=== PATIENT | male | born 1975 | race Hispanic/Latino ===

== ENCOUNTER 2017-01-25 07:27 | Day surgery (SDC) | payer OTHER ==
[2017-01-21 11:09] VITALS: BMI 45.3
[2017-01-25] MEDS ORDERED: Morphine 1 mg/ml preservative-free Inj(Duramorph) ONE (07:51)
[2017-01-25] MEDS ORDERED: Sodium Chloride 0.9% 0 ML IV ONE (07:51)
[2017-01-25] MEDS ORDERED: Bupivacaine 0.5% Inj(30mL) ONE (07:52)
[2017-01-25] MEDS ORDERED: Thrombin Topical 5,000 IU Spray Kit ONE (07:52)
[2017-01-25] MEDS ORDERED: Absorbable Gelatin Sponge Size 100 ONE (07:52)
[2017-01-25] MEDS ORDERED: Lidocaine 2% w Epi 1:100,000 Inj IJ ONE (07:52)
[2017-01-25] MEDS ORDERED: EPINEPHrine 1 mg/ml (1:1000) Inj ONE (07:52)
[2017-01-25] MEDS ORDERED: Lactated Ringer's 1,000 ML IV ONE ×2 (08:19→11:00)
[2017-01-25] MEDS ORDERED: Rocuronium 10 mg/ml (5 ml) ONE ×2 (08:37→09:40)
[2017-01-25] MEDS ORDERED: Succinylcholine 200 mg/10 ml Inj IV ONE (08:37)
[2017-01-25] MEDS ORDERED: Midazolam 2 MG/2 ML VIAL ONE (08:37)
[2017-01-25] MEDS ORDERED: Propofol 10 mg/ml Inj (20 ML) ONE ×2 (08:37→10:34)
[2017-01-25] MEDS ORDERED: MethylPREDNISolone Depo 40 mg/ml Inj ONE (10:49)
[2017-01-25] MEDS ORDERED: methylPREDNISolone Depo 80 mg/ml Inj ONE (10:49)
[2017-01-25] MEDS ORDERED: Bupivacaine HCl 0.25% PF (30 ml) Inj ONE (10:49)
[2017-01-25] MEDS ORDERED: Neostigmine Methylsulfate 3mg/3ml Syringe IV ONE (10:52)
[2017-01-25] MEDS ORDERED: Dexamethasone 4 mg/1 ml IVP ONE (12:14)
--- NOTE | 2017-01-25 12:17 | PCM.SURG1 ---
Surgeon's Initial Post Op Note - Surgeon's Notes Surgeon: Ben Olmos MD Making Machine Operator: Madie Glynn PA-C Type of Anesthesia: General Endo Pre-Operative Diagnosis: Right Hip Labral Tear Operative Findings: See op report Post-Operative Diagnosis: Same as pre-op dx Operation Performed: Right hip Arthroscopy, Debriedement, femoroplasty, acetabuloplasty Specimen/Specimens Removed: None Estimated Blood Loss: EBL {In ML}: 15 Date of Surgery/Procedure: 01/25/17 Time of Surgery/Procedure: 09:45
[2017-01-25] MEDS ORDERED: Oxycodone/Acetaminophen 5/325 mg Tab PO PRN (12:18)
[2017-01-25] MEDS: HYDROmorphone 0.5 mg/0.5 ml ISec IVP PRN ×5 (12:25→13:25)
[2017-01-25] MEDS ORDERED: Dexamethasone 4 mg/1 ml IV ONE (13:40)
[2017-01-25 14:36] VITALS: RESP 20; O2SAT 97
[2017-01-25 15:44] VITALS: BP 141/90; PULSE 102; TEMP 97.3
--- NOTE | 2017-01-26 16:55 | RAD ---
PROCEDURE: Fluoroscopy up to 1 hr. HISTORY: RIGHT HIP ARTHROSCOPY COMPARISON: None TECHNIQUE: Standard protocol for this study/examination. FINDINGS: Submitted images from the current procedure: 8.0. IMPRESSION: Total fluoroscopic time (continuous mode) utilized during the procedure: 85.5 seconds.
== END 2017-01-25 15:45 | disposition home or self-care (01) ==
LOC: H.OPSURG 07:27
PROVIDERS: ATTEND Orthopaedic Surgery
DX: M24.151 Other articular cartilage disorders, right hip (principal); M25.851 Other specified joint disorders, right hip; M16.11 Unilateral primary osteoarthritis, right hip

== ENCOUNTER 2017-06-07 07:48 | Day surgery (SDC) | payer OTHER ==
[2017-06-07 08:15] VITALS: BMI 33.5
[2017-06-07] MEDS ORDERED: Lactated Ringer's 1,000 ML IV ONE ×3 (09:20→19:15)
[2017-06-07] MEDS ORDERED: Bupivacaine HCl 0.25% PF (10 ml) Inj ONE (12:16)
[2017-06-07] MEDS ORDERED: MethylPREDNISolone Depo 40 mg/ml Inj ONE (12:16)
[2017-06-07] MEDS ORDERED: methylPREDNISolone Depo 80 mg/ml Inj ONE (12:16)
[2017-06-07] MEDS ORDERED: Lidocaine 2% w Epi 1:100,000 Inj IJ ONE (12:17)
[2017-06-07] MEDS ORDERED: Bupivacaine 0.5% Inj(30mL) ONE (12:17)
[2017-06-07] MEDS ORDERED: Lidocaine 2% Jelly (5 ml) TOP ONE (12:59)
[2017-06-07] MEDS ORDERED: Propofol 10 mg/ml Inj (20 ML) ONE ×3 (12:59→16:53)
[2017-06-07] MEDS ORDERED: Midazolam 2 MG/2 ML VIAL ONE (12:59)
[2017-06-07] MEDS ORDERED: Dexamethasone 4 mg/1 ml ONE (15:08)
[2017-06-07] MEDS: HYDROmorphone 0.5 mg/0.5 ml ISec IVP PRN ×6 (17:10→18:30)
[2017-06-07] MEDS ORDERED: Lactated Ringer's 1,000 ML IV SCH (17:15)
--- NOTE | 2017-06-07 17:16 | PCM.SURG1 ---
Surgeon's Initial Post Op Note - Surgeon's Notes Surgeon: Ben Olmos MD Rotary Pump Operator: Madie Glynn PA-C Type of Anesthesia: General Endo Pre-Operative Diagnosis: Left Hip labral tear Operative Findings: see op report Post-Operative Diagnosis: same as pre-op dx Operation Performed: Left hip arthroscopy, labral repair, femoroplasty, debriedment Specimen/Specimens Removed: none Estimated Blood Loss: EBL {In ML}: 5 Date of Surgery/Procedure: 06/07/17 Time of Surgery/Procedure: 14:00
[2017-06-07] MEDS ORDERED: Oxycodone/Acetaminophen 5/325 mg Tab PO PRN (17:18)
[2017-06-07] MEDS ORDERED: Ropivacaine 0.5% 30ML IV ONE ×2 (17:40→18:42)
[2017-06-07] MEDS ORDERED: Lidocaine 2% Inj (20ml) ONE (17:40)
[2017-06-07] MEDS ORDERED: Sodium Chloride 0.9% 500 ML IV ONE (18:15)
[2017-06-07] MEDS ORDERED: Lidocaine 1% Inj (20ml) ONE (18:42)
--- NOTE | 2017-06-07 19:23 | PCM.ANESB3 ---
Femoral Nerve Block - Femoral Nerve Block Date of Procedure: 06/07/17 Anesthesiologist: Valente Pre-Procedure Diagnosis: Left hip torn labrum Post-Procedure Diagnosis: Same Procedure Performed: Femoral Nerve Block Left - Procedure Femoral Nerve Block: The procedure was explained to the patient that it is for the post-operative pain management. Consent was obtained after a thorough discussion with the patient regarding the benefits and possible complications of local anesthetic block of the femoral nerve at the inguinal crease area. In the PACU. Time-out was held with the circulating nurse to confirm the correct surgery and the appropriate block. After applying oxygen by nasal cannula , patient was placed in supine position with fully extended lower extremities and the ____left____ groin exposed. The femoral artery was then carefully palpated. The ultrasound transducer was then applied to this area in the transverse plane and the femoral nerve was visualized lateral to the femoral artery and underneath the fascia iliaca. After thorough identification, the inguinal crease area was prepped with Chloraprep and 1 % Lidocaine was injected subcutaneously for topical anesthesia. At this point, a #22 gauge Stimuplex 2-inch needle was inserted immediately lateral to the femoral artery pulse at the inguinal crease and advanced perpendicularly. The needle was inserted to the ultrasound transducer in-plane towards the femoral nerve in a [id number] direction. Needle advancement was performed carefully under direct ultrasound visualization. Nerve stimulator was used and twitch of the quadriceps muscle was obtained at current of __0.4___ MA. After negative aspiration, __2___cc of __0.25___% __ropivicaine was injected and this was followed with _38 cc of ___0.25____ % ropivicaine . Under ultrasound guidance the local anesthetics were observed spreading below fascia iliaca and around the femoral nerve. The needle was removed intact and sterile dressing was applied. The patient had stable vital signs, was conscious and in no apparent distress. The patient tolerated the femoral nerve block well.
--- NOTE | 2017-06-07 19:29 | PCM.ANESB3 ---
Femoral Nerve Block - Femoral Nerve Block Date of Procedure: 06/07/17 Anesthesiologist: Valente Pre-Procedure Diagnosis: Left Hip torn labrum Post-Procedure Diagnosis: Same Procedure Performed: Femoral Nerve Block Left - Procedure Femoral Nerve Block: After the initial femoral nerve block the patient continued to complain of pain in the distribution of the femoral nerve. After verifying the patients consent for a second femoral nerve block and reviewing the risks and benefits and possible complications of the procedures, standard monitors were applied. Time- out was held with the circulating nurse to confirm the correct surgery and the appropriate block. After applying oxygen by nasal cannula the patient was placed in supine position with fully extended lower extremities and the ____left ____ groin exposed. The femoral artery was then carefully palpated. The ultrasound transducer was then applied to this area in the transverse plane and the femoral nerve was visualized lateral to the femoral artery and underneath the fascia iliaca. After thorough identification, the inguinal crease area was prepped with Chloraprep and 1 % Lidocaine was injected subcutaneously for topical anesthesia. At this point, a #22 gauge Stimuplex 2-inch needle was inserted immediately lateral to the femoral artery pulse at the inguinal crease and advanced perpendicularly. The needle was inserted to the ultrasound transducer in-plane towards the femoral nerve in a [id number] direction. Needle advancement was performed carefully under direct ultrasound visualization. Nerve stimulator was used and twitch of the quadriceps muscle was obtained at current of __0.4___ MA. After negative aspiration, __2___cc of ___0.25__% ropivicaine was injected and this was followed with ___38___ cc of __0.25 % _ropivicaine . Under ultrasound guidance the local anesthetics were observed spreading below fascia iliaca and around the femoral nerve. The needle was removed intact and sterile dressing was applied. The patient had stable vital signs, was conscious and in no apparent distress. The patient reported a significant reduction in his pain after the second femoral nerve block.
[2017-06-07 19:59] VITALS: O2SAT 95
[2017-06-07 20:11] VITALS: BP 141/83; PULSE 102; RESP 20; TEMP 98.4
--- NOTE | 2017-06-07 22:15 | OP ---
PROCEDURE DATE: 06/07/2017 PREOPERATIVE DIAGNOSES: 1. Left hip synovitis. 2. Left hip labral tear. 3. CAM impingement. POSTOPERATIVE DIAGNOSES: 1. Left hip extensive synovitis. 2. Grade 2 chondral injury of femoral head. 3. Displaced labral tear. 4. CAM lesion. SURGEON: Ben Olmos MD. SODDER: Madie Glynn PA-C ANESTHESIA: General and postoperative block. PROCEDURES: 1. Left hip arthroscopic labral repair. 2. Complete synovectomy. 3. Chondroplasty of femoral head. 4. Femoral neck osteoplasty. ESTIMATED BLOOD LOSS: 10 mL. SPECIMENS: None. CLOSURE: Primary FLUIDS: See anesthesia sheet COMPLICATIONS: None INDICATIONS: After failing a course of non-operative therapy, the patient elected to undergo the above procedure. In the office, the risks and possible complications of hip arthroscopy were discussed in detail with the patient. These risks include but are not limited to continued pain, lack of motion, infection, vascular injury, DVT / PE, nerve injury including sciatic nerve injury, peroneal nerve dysfunction, perineal nerve injury including temporary and permanent paresthesias, reflex sympathetic dystrophy, compartment syndrome, unforeseen medical and/or anesthesia complications, limb loss, and even . The patient expressed an understanding of the risks and possible benefits of the procedure, and is also aware of the alternatives to surgery. An informed consent was obtained, and was checked immediately pre-op. PROCEDURE: The patient was correctly identified in the holding area and the left hip was marked with the surgeons initials. The patient was transported to the operating room and placed in the supine position. General and postoperative nerve block anesthesia was obtained. Both legs were placed in a distractor, a well padded perineal post was placed. The operative extremity was distracted, against the well-padded perineal post, using leg orozco with manual distractor. Live fluoroscopic images were used to confirm adequate distraction, once satisfied, the extremity was draped and prepped in standard fashion. Time out was completed confirming the correct operative site. A standard anterolateral viewing portals was established after placing a spinal needle into the hip joint, and it's position was confirmed with fluoroscopic image. Next, #11 blade was used to make small skin incision and cannula was inserted into the hip joint. The hip joint was distended with normal saline and epinephrine in a 1:1,000,000 mixture, at an initial pressure of 35mmHg. The 70 degree arthroscope was inserted from the anterolateral portal. A second, long spinal needle was inserted into the joint, under direct visualization to establish modified anterior portal. Care was taken to not injure the labrum and chondral surfaces and additional cannula was inserted. Next, a sharp blade was used to perform limited capsulotomy and we proceeded with diagnostic arthroscopy. FINDINGS: Arthroscopic examination of the hip revealed: 1. Extensive synovitis. 2. Displaced labral tear. 3. Grade 2 chondral injury of femoral head. 4. CAM lesions. Excessive intra-articular synovitis was cleared with a 4.0 mm full radius shaver. The hypertrophic, erythematous synovium was resected, hemostasis was maintained with the radiofrequency device. After careful inspection, the labrum was found to be fully torn and displaced from the acetabular edge. Decision was made to proceed with labral repair. Using motorized shave, all the soft tissue was removed from the edge of the acetabulum. A high speed lacey was used to decorticate the bone, to promote bleeding and improve healing of repaired tissue. A total of 2 [place] curved suture anchors were placed at the edge of acetabulum. Care was taken not the penetrate the chondral surface of acetabulum. The suture was passed around the labrum using suture passing device and labrum was securely repaired to it's anatomic position. The full radius shaver was used to mechanically debride loose chondral edges of the femoral head, to a stable border. Extreme care was taken to not disrupt the adjacent chondral surface. The edge of the debrided area was probed to ensure chondral stability. Patient was noted to have significant CAM impingement, that was noted on pre-surgical imaging studies and confirmed with intra-operative fluoroscopy and arthroscopic assessment. The leg distraction was released, hip was flexed, taken through range of motion the truly assess the borders and extent of CAM lesion. Motorized shaver was used to remove any soft tissue. Next, high-speed lacey was used to remove the CAM lesion. The extent of resection was confirmed using live fluoroscopy and found to be adequate. Portals were closed using sutures. A sterile dressing was applied. The patient was extubated without incident and transferred to the recovery room in stable condition, having tolerated the procedure well. Post-operatively, the patient was instructed to remain toe touch weightbearing and limited range of motion until further instructed. Follow up in the office 7 to 10 days. The sponge and needle count at the close of the case was correct. The attending surgeon was scrubbed and present for all the critical portions of the case, including all of the intra-articular arthroscopic procedures. During this procedure, I was assisted by Madie Glynn PA-C, who assisted in positioning the patient on the operating room table as well as transferring the patient from the operating room table to the recovery room stretcher. In addition, Madie Glynn PA-C assisted me during the actual operative procedure by positioning the patient's extremity to allow for easier arthroscopic access to all areas of the joint. The presence of Madie Glynn PA-C as my operative commercial escrow assistant was medically necessary to ensure the utmost safety of the patient in the pre, intra-, and post-operative periods. Ben Olmos MD
--- NOTE | 2017-06-09 17:23 | RAD ---
PROCEDURE: Intraoperative Fluoroscopy. HISTORY: FLUOROSCOPY FINDINGS: Fluoroscopic assistance was provided for left hip orthopedic procedure. Please refer to the operative report from
== END 2017-06-07 21:05 | disposition home or self-care (01) ==
LOC: H.OPSURG 07:48 → H.PEDS 20:03 → H.OPSURG 21:05
PROVIDERS: ATTEND Orthopaedic Surgery
DX: M65.88 Other synovitis and tenosynovitis, other site (principal); S79.812A Other specified injuries of left hip, initial encounter; X58.XXXA Exposure to other specified factors, initial encounter; S73.192A Other sprain of left hip, initial encounter; E66.9 Obesity, unspecified
CPT/HCPCS: 27299; 29863; 97161; G8978; G8979; G8980; J0171; J0690; J1030; J1040; J1100; J1170; J2001; J2250; J2405; J2704; J2765; J3010; J7030; J7040; J7120

== ENCOUNTER 2017-10-18 09:03 | Inpatient (IN) | payer OTHER ==
[2017-10-17 14:34] VITALS: BMI 34.8
[2017-10-18] MEDS ORDERED: Propofol 10 mg/ml Inj (20 ML) ONE (12:38)
[2017-10-18] MEDS ORDERED: Midazolam 2 MG/2 ML VIAL ONE (12:38)
[2017-10-18] MEDS ORDERED: Lidocaine 4% (Laryng-O-Jet) Kit MM ONE (12:38)
[2017-10-18] MEDS ORDERED: Rocuronium 10 mg/ml (5 ml) ONE ×2 (12:45→14:36)
[2017-10-18] MEDS ORDERED: Sodium Chloride 0.9% 20 ML IV ONE (13:06)
[2017-10-18] MEDS ORDERED: MethylPREDNISolone Depo 40 mg/ml Inj ONE (13:06)
[2017-10-18] MEDS ORDERED: Bupivacaine 0.5% Inj(30mL) ONE (13:07)
[2017-10-18] MEDS ORDERED: Lidocaine 1% Inj (20ml) ONE (13:07)
[2017-10-18] MEDS ORDERED: Sodium Chloride 0.9% 10 ML IV ONE (14:12)
[2017-10-18] MEDS ORDERED: Sevoflurane - Inhalation Anesthetic Liq (250 ml) ONE (15:14)
[2017-10-18] MEDS: Bupivacaine 0.5% Inj(30mL) ONE ×2 (15:14→15:57)
[2017-10-18] MEDS: Morphine 1 mg/ml preservative-free Inj(Duramorph) ONE ×2 (15:15→15:57)
[2017-10-18] MEDS ORDERED: Sodium Chloride 0.9% Inj (10mL) IV ONE ×3 (15:18→15:57)
[2017-10-18] MEDS ORDERED: EPINEPHrine 1 mg/ml (1:1000) Inj IV ONE ×3 (15:20→15:57)
[2017-10-18] MEDS ORDERED: Neostigmine 1:1000 (1 mg/ml) Inj ONE (15:50)
[2017-10-18] MEDS ORDERED: Lactated Ringer's 1,000 ML IV ONE ×3 (15:58→16:35)
--- NOTE | 2017-10-18 16:45 | PCM.SURG1 ---
Surgeon's Initial Post Op Note - Surgeon's Notes Surgeon: Ben Olmos MD Feeder Worker Power Unit Operator: Madie Glynn PA-C; Yue Forde Type of Anesthesia: General Endo, Spinal Pre-Operative Diagnosis: Right hip severe OA Operative Findings: see op report Post-Operative Diagnosis: same as pre-op dx Operation Performed: R THR Specimen/Specimens Removed: right hip femoral head and soft tissue Estimated Blood Loss: EBL {In ML}: 100 Date of Surgery/Procedure: 10/18/17 Time of Surgery/Procedure: 14:30
[2017-10-18] MEDS ORDERED: Oxycodone/Acetaminophen 5/325 mg Tab PO PRN (16:51)
--- NOTE | 2017-10-18 18:54 | RAD ---
PROCEDURE: Right Hip Radiographs. HISTORY: s/p RTHR COMPARISON: None. FINDINGS: BONES: No acute fracture. JOINTS: Right hip arthroplasty. No dislocation. SOFT TISSUES: Normal. OTHER FINDINGS: None. IMPRESSION: Right hip arthroplasty.
[2017-10-18] MEDS: oxyCODONE 10 mg ER Tab (oxyCONTIN) PO SCH (21:27)
[2017-10-18] MEDS ORDERED: ceFAZolin 1 GM in Sodium Chloride 0.9% 100 ML IVPB ONE (21:30)
--- NOTE | 2017-10-18 23:10 | OP ---
PROCEDURE DATE: 10/18/2017 ATTENDING SURGEON: Ben Olmos MD MANAGER FRENCH: Madie Glynn PA-C PREOPERATIVE DIAGNOSIS: Right hip osteoarthritis. POSTOPERATIVE DIAGNOSIS: Right hip osteoarthritis. PROCEDURE: Right total hip replacement. IMPLANTS SIZE: Kady size-54 mm Titanium cup, a 10-degree liner, size 4 high-offset stem, 36-mm ceramic head with -5 neck length. ANESTHESIA TYPE: General. ESTIMATED BLOOD LOSS: 400 mL. COMPLICATIONS: None. HISTORY: Patient with long standing history of right hip pain refractory of conservative management. X-ray had shown significant loss of joint space. After the failure of extensive conservative management, I had offered the patient the treatment option of total hip replacement. I reviewed the risk and benefits of the surgery with the patient in detail. The risks include, but not limited to bleeding, infection, nerve vessel damage, continuous pain, blood loss, instability, dislocation, iatrogenic fracture, blood clots, need for further surgery, and even . The patient fully understood the risks and benefits and opted to proceed. Patient underwent necessary preoperative medical workup and once medically cleared, was scheduled for the procedure. DESCRIPTION OF PROCEDURE: On the day of the surgery, the patient was admitted to preoperative holding area. A laterality sheet was completed, confirming correct operative site. An informed consent was signed from the patient and the correct operative hip was marked. Patient was brought into the operating room table. He underwent general anesthesia. We proceeded with Navigation assisted total hip replacement. Two pins were placed in the iliac crest to attach the antenna. Additional checkpoint was placed on the greater trochanter and on top of the acetabular roof. Afterwards, the patient was placed on the operating room table in lateral decubitus position. All the bony prominences were well padded and an axillary roll was also placed. The hip was draped and prepped in the standard sterile manner. Timeout was completed, confirming correct operative site. We utilized a standard postero-lateral approach. Using a #10 blade, a skin incision was made. The soft tissue dissection was taken down until the IT band fascia was identified incised along it's fibers. The short external rotators were exposed and excised with the capsule. It was tagged wit heavy sutures preserved for a later repair. Afterwards, the hip was dislocated and proposed neck cut was made. The Acetabulum was exposed using standard retractors. The remnant of torn labrum was excised along with pulvinar. The acetabulum was reamed using motorized reamers to the size that provide adequate depth and coverage. Next, 54-mm size cup was securely fixed in to the acetabular socket in appropriate version and inclination. A polyethylene liner was secured in to the acetabular cup. The femoral canal was exposed using standard retractors. Using the box chisel, lateral femoral neck was removed. Femoral canal was broached up to size-4 broach, which provide a secure fit and adequate fill of femoral canal. A high-offset trial neck was secured onto the broach. Different trial heads with variable neck lengths were secured onto the trial neck. The hip was reduced and taken through extensive range of motion to test stability, soft tissue tensioning and leg length. It was noted the 36-mm head with -5 neck length provide adequate stability, soft tissue tensioning and length. Next, size 4 high-offset stem was securely fixed into the femoral canal. Then, a 36-mm ceramic head with -5 neck length was secured onto the neck of femoral stem. Hip was reduced and taken through final range of motion to assess for stability, soft tissue tensioning and leg length which was found to be satisfactory. During this procedure, I was assisted by Madie Glynn PA-C, who assisted in positioning the patient on the operating room table as well as transferring the patient from the operating room table to the recovery room stretcher. In addition, Madie Glynn PA-C, assisted me during the actual operative procedure by positioning, protecting critical neurovascular structures, exposure of the joint, and proper positioning of the implants. The presence of Madie Glynn PA-C, as my operative assistant manager retail was medically necessary to ensure the utmost safety of the patient in the pre, intra-, and post-operative periods. Finally, the wound was copiously irrigated using pulse lavage solution. All loose bodies were removed. The short external rotators were repaired to greater trochanter using drill holes and heavy sutures. IT band fascia was tightly closed using heavy sutures and rest the wound was closed standard manner. Sterile dressing was applied. Patient was transferred to stretcher. Post-op instructions included posterior hip precautions. Due to the patient's morbid obesity, this procedure was more difficult than a standard knee arthroscopy. This required extra time during prepping and draping, as well as an extended operative time. The length of the case was prolonged due to these factors by 50%. Ben Olmos MD
[2017-10-19] MEDS ORDERED: ceFAZolin 1 GM in Sodium Chloride 0.9% 100 ML IVPB ONE (05:30)
[2017-10-19 06:31] LABS: BASO % 0.3 % (0.0-2.0); HEMOGLOBIN 12.8 g/dL (12.0-18.0); LYMPH # 1.6 K/uL (1.0-4.3); LYMPH % 16.5 % (20.0-40.0); MEAN CELL VOLUME 88.8 fl (80.0-94.0); MEAN CORPUSCULAR HEMOGLOBIN 30.7 pg (27.0-31.0); MEAN CORPUSCULAR HGB CONC 34.6 g/dL (33.0-37.0); MEAN PLATELET VOLUME 7.7 fl (7.2-11.7); MONO % 10.2 % (0.0-10.0); NEUT # 7.3 K/uL (1.8-7.0); RBC 4.18 Mil/uL (4.40-5.90)
[2017-10-19 06:38] LABS: BLOOD UREA NITROGEN 18 mg/dl (9-20); CALCIUM 8.4 mg/dL (8.4-10.2); GFR AFRICAN-AMERICAN > 60; GFR NON-AFRICAN AMERICAN > 60
[2017-10-19] MEDS ORDERED: Povidone Iodine Topical 10% Sol ONE (09:07)
[2017-10-19] MEDS: oxyCODONE 10 mg ER Tab (oxyCONTIN) PO SCH ×2 (09:57→20:14)
--- NOTE | 2017-10-19 10:05 | CP.PCM.PN ---
Subjective - Date & Time of Evaluation Date of Evaluation: 10/19/17 Time of Evaluation: 08:45 - Subjective Subjective: S/P RTHR POD#1 Pt seen and examined with Dr. Olmos at bedside, pt comfortable in bed Pt c/o mild right hip pain and drainage Pt c/o trouble urinating, states was able to urinate small amount this am Pt denies any chest pain, SOB, N/V/D, numbness/tingling RLE Objective - Vital Signs/Intake and Output Vital Signs (last 24 hours): Temp Pulse Resp BP Pulse Ox 99.4 F 110 H 18 126/70 20 L 10/19/17 07:53 10/19/17 07:53 10/19/17 05:15 10/19/17 07:53 10/19/17 07:53 - Medications Medications: Current Medications Acetaminophen (Tylenol 325mg Tab) 325 mg PO Q4 PRN PRN Reason: pain1-3 Celecoxib (Celebrex) 200 mg PO Q12 [facility] Last Admin: 10/18/17 21:26 Dose: 200 mg Docusate Sodium (Colace) 100 mg PO BID [facility] Last Admin: 10/18/17 21:26 Dose: 100 mg Hydromorphone HCl (Dilaudid) 0.5 mg IVP Q5MIN PRN PRN Reason: Pain, moderate (4-7) Ketorolac Tromethamine (Toradol) 15 mg IM Q8 [facility] Stop: 10/20/17 23:59 Last Admin: 10/19/17 02:02 Dose: Not Given Ondansetron HCl (Zofran Inj) 4 mg IVP Q4 PRN PRN Reason: Nausea/Vomiting Last Admin: 10/18/17 21:29 Dose: 4 mg Oxycodone HCl (Oxycontin Extended Release Tab) 10 mg PO Q12 [facility] Stop: 11/01/17 21:01 Last Admin: 10/18/17 21:27 Dose: 10 mg Oxycodone/Acetaminophen (Percocet 5/325 Mg Tab) 1 tab PO Q4 PRN PRN Reason: pain4-7 Stop: 10/21/17 16:52 - Labs Labs: 10/19/17 05:20 10/19/17 05:20 - Constitutional Appears: Well, No Acute Distress - Respiratory Exam Respiratory Exam: Clear to Ausculation Bilateral, NORMAL BREATHING PATTERN - Cardiovascular Exam Cardiovascular Exam: REGULAR RHYTHM, RRR - Extremities Exam Additional comments: RLE: Hip dressing saturated, dressing changed, minimal active draiange from wound distally Calves soft and nontender b/l N/V intact distally Distal pulses wnl Cap refill <2sec Assessment and Plan - Assessment and Plan (Free Text) Assessment: 42 yo M s/p RTHR POD#1 Plan: Continue to monitor wound drainge/change dressing prn Pain Control DVT ppx- aspirin 325mg BID Incentive Spirometer PT/OT - WBAT RLE Posterior Hip precautions F/U labs Will follow
[2017-10-19] MEDS ORDERED: Enoxaparin 40 mg Syringe SC SCH (22:00)
[2017-10-20 07:26] LABS: BASO % 0.5 % (0.0-2.0); EOS # 0.1 K/uL (0.0-0.7); EOS % 0.8 % (0.0-4.0); HEMOGLOBIN 11.9 g/dL (12.0-18.0); LYMPH % 24.3 % (20.0-40.0); MEAN CELL VOLUME 88.8 fl (80.0-94.0); MEAN CORPUSCULAR HEMOGLOBIN 30.9 pg (27.0-31.0); MEAN CORPUSCULAR HGB CONC 34.8 g/dL (33.0-37.0); MEAN PLATELET VOLUME 7.7 fl (7.2-11.7); MONO # 0.9 K/uL (0.0-0.8); MONO % 10.9 % (0.0-10.0); NEUT # 5.3 K/uL (1.8-7.0); NEUT % 63.5 % (50.0-75.0); NRBC % 0.2 % (0.0-0.0); RBC 3.84 Mil/uL (4.40-5.90); RED CELL DISTRIBUTION WIDTH 13.2 % (11.5-14.5); WHITE BLOOD COUNT 8.4 K/uL (4.8-10.8)
[2017-10-20 07:31] LABS: BLOOD UREA NITROGEN 20 mg/dl (9-20); CALCIUM 8.4 mg/dL (8.4-10.2); GFR AFRICAN-AMERICAN > 60; GFR NON-AFRICAN AMERICAN > 60
[2017-10-20 08:36] VITALS: O2SAT 98
[2017-10-20] MEDS: oxyCODONE 10 mg ER Tab (oxyCONTIN) PO SCH (09:21)
[2017-10-20 16:18] VITALS: BP 124/78; PULSE 94; RESP 18; TEMP 97.9
== END 2017-10-20 16:00 | disposition home health service (06) | DRG 470 ==
LOC: H.OPSURG 09:03 → H.MEDSURG1 17:14
PROVIDERS: ADMIT Family Medicine; ATTEND Family Medicine
PROC: 0SR903Z Replacement of Right Hip Joint with Ceramic Synthetic Substitute, Open Approach (ICD-10-PCS; principal; 2017-10-18 10:45)
DX: M16.11 Unilateral primary osteoarthritis, right hip (principal); E66.01 Morbid (severe) obesity due to excess calories; Z68.34 Body mass index [BMI] 34.0-34.9, adult